=== PATIENT | male | born 1945 | race Caucasian/White ===

== ENCOUNTER 2017-07-18 17:10 | Emergency (ER) | payer OTHER ==
[~2017-07-18] VITALS: Ht 177.8 cm; Wt 115.7 kg
[2017-07-18 19:06] LABS: Basophils # (auto) 0 uL; Basophils % (auto) 0.5 % (0.0-2.0); Eosinophils # (auto) 0.1 uL; Eosinophils % (auto) 1.5 % (0.0-7.0); Hemoglobin 12.8 g/dL (13.5-17.5); Lymphocytes # (auto) 0.8 uL; Lymphocytes % (auto) 17.3 % (10.0-50.0); Mean Corpuscular Hgb Conc. 32.9 g/dL (32.0-36.0); Mean Corpuscular Volume 91.2 fL (80.0-100.0); Monocytes # (auto) 0.5 uL; Monocytes % (auto) 11.5 % (0.0-12.0); Neutrophils # (auto) 3.2 uL; Neutrophils % (auto) 69.2 % (37.0-80.0); Platelet Count (auto) 147 10^3/uL (140-450); Red Blood Cells 4.27 10^6/uL (4.5-5.90); Red Cell Distribution Width 14.7 % (11.8-14.3); White Blood Cell 4.7 10^3/uL (4.4-10.8)
[2017-07-18 19:21] LABS: Albumin 3.1 g/dL (3.4-5.0); Anion Gap 6 (5-15); BUN/Creatinine Ratio 18.6; Blood Urea Nitrogen 24 mg/dL (7-18); Carbon Dioxide 31 mmol/L (21-32); Chloride 104 mmol/L (98-107); GFR African American 70 mL/min; GFR Non-African American 58 mL/min; Glucose 90 mg/dL (74-106); Magnesium 1.8 mg/dL (1.6-2.6); Sodium 141 mmol/L (136-145)
[2017-07-18 19:26] LABS: Alanine Aminotransferase 40 U/L (16-61); Alkaline Phosphatase 58 U/L (45-117); Aspartate Aminotransferase 56 U/L (15-37); Bilirubin, Total 0.4 mg/dL (0.2-1.0)
[2017-07-18 19:50] LABS: Potassium 4.4 mmol/L (3.5-5.1)
[2017-07-18] MEDS ORDERED: IOHEXOL 350 MG/ML 100ML IJ ONE (21:22)
[2017-07-19] MEDS ORDERED: ENOXAPARIN SOD 120 MG/0.8 ML SYRINGE SC ONE (01:00)
[2017-07-19 02:22] VITALS: BP 125/51
== END 2017-07-19 02:37 | disposition short-term general hospital (02) ==
LOC: ER 17:11
DX: R60.0 Localized edema (principal); R05 Cough; R74.8 Abnormal levels of other serum enzymes; Z99.81 Dependence on supplemental oxygen
CPT/HCPCS: 36415; 71045; 80053; 83605; 83735; 83880; 84484; 85025; 85379; 87040; 93005; 93970; 94761; 96372; 99285; J1650; Q9967